=== PATIENT | male | born 1995 | race American Indian/Alaskan Native ===

== ENCOUNTER 2016-05-19 16:35 | Emergency (ER) | payer MEDICAID, OTHER ==
--- NOTE | 2016-05-19 16:45 | EDM.PDOC ---
ED HPI SEIZURE COMPLAINT - General Chief Complaint: Neurological Problem Stated Complaint: SEIZURE. 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 Patient was reported by father and EMS to be postictal for approximately 30 minutes. Denies injury. Patient reports he got sick 1 day ago with fevers, headache, upper abdominal pain, nausea and vomiting. Admits to mild sore throat. Patient has had one previous seizure 2 months ago and has a neurology consultation on June 18. 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 Symptom Onset Date: 05/19/16 Event Occurred (Where): home Event (Witnessed/Unwitnessed): unwitnessed Severity: severe Pre Event Symptom(s): Reports: no other symptoms Event Symptoms: Reports: no other symptoms Post Event Symptoms: Reports: postictal duration: (30 minutes) Associated Injuries: Reports: other (no injury) - Related Data Allergies/ADRs: Allergies Allergy/AdvReac Type Severity Reaction Status Date / Time diphenhydramine Allergy Hives Verified 05/19/16 16:28 [From Benadryl] Home Meds: Home Meds Acetaminophen [Tylenol Childrens' Chewable] 80 mg PO Q6H PRN 05/19/16 [History] Past Medical History - Past Health History Medical/Surgical History: Denies Medical/Surgical History HEENT History: Reports: None Cardiovascular History: Reports: Other (see below) Other Cardiovascular History: shunt Respiratory History: Reports: None Gastrointestinal History: Reports: None Genitourinary History: Reports: None Musculoskeletal History: Reports: None Neurological History: Reports: Seizure Psychiatric History: Reports: None Endocrine/Metabolic History: Reports: None Hematologic History: Reports: None Immunologic History: Reports: None Oncologic (Cancer) History: Reports: None Dermatologic History: Reports: None - Infectious Disease History Infectious Disease History: Reports: None - Past Surgical History Head Surgeries/Procedures: Reports: Shunt Other Neurological Surgeries/Procedures: shunt place with valve when a baby Social & Family History - Family History Family Medical History: Noncontributory - Tobacco Use Smoking Status *Q: Never Smoker Second Hand Smoke Exposure: No - Caffeine Use Caffeine Use: Reports: Soda, Tea - Recreational Drug Use Recreational Drug Use: Yes Recreational Drug Type: Reports: Marijuana/Hashish Recreational Drug Use Frequency: Socially - Living Situation & Occupation Living situation: Reports: with family ED ROS GENERAL - Review of Systems Review Of Systems: ROS reveals no pertinent complaints other than HPI. - Physical Exam Exam: See Below Exam Limited By: No limitations General Appearance: alert, WD/WN, no apparent distress Eye Exam: bilateral eye: normal inspection Ears: normal TMs Nose: other (mild clear nasal congestion) Throat/Mouth: Other (pharyngeal erythema with exudates.) Head Exam: atraumatic, normocephalic Neck: other (no nuchal rigidity). No: lymphadenopathy (L), lymphadenopathy (R) Respiratory/Chest: no respiratory distress, lungs clear, normal breath sounds, no accessory muscle use, chest non-tender Cardiovascular: normal peripheral pulses, regular rate, rhythm, no edema, no gallop, no JVD, no murmur, no rub GI/Abdominal: normal bowel sounds, soft, non tender, no organomegaly, no distention, no abnormal bruit, no mass Neuro Exam (Abbreviated): alert, oriented, CN II-XII intact, normal cognition, normal gait, normal reflexes, no motor/sensory deficits Back Exam: normal inspection, full range of motion, NT Extremities: normal inspection, normal range of motion, non-tender, no pedal edema, normal capillary refill Psychiatric: normal affect, normal mood Skin Exam: Other (facial ecchymosis) Course - Vital Signs Last Recorded V/S: Last Vital Signs Temp 36.8 C 05/19/16 16:42 Pulse 48 L 05/19/16 17:48 Resp 18 05/19/16 17:48 BP 127/67 05/19/16 17:48 Pulse Ox 99 05/19/16 17:48 - Orders/Labs/Meds Orders: Active Orders 24 hr Category Date Time Status Head wo Cont [CT] Stat Exams 05/19/16 16:58 Taken Lumbar Spine 2 or 3V [CR] Stat Exams 05/19/16 17:01 Taken Thoracic Spine 2V [CR] Stat Exams 05/19/16 17:03 Taken DRUG SCREEN URINE BIORAD [URCHEM] Stat Lab 05/19/16 16:57 Uncollected MAGNESIUM [CHEM] Stat Lab 05/19/16 17:59 Ordered UA W/MICROSCOPIC [URIN] Stat Lab 05/19/16 16:56 Uncollected Potassium Chloride [KCl 10 MEQ in Water 100 ML] 10 meq Med 05/19/16 18:00 Active Premix Bag 1 bag IV ONETIME Medication Orders Potassium Chloride 10 meq/ (Premix) 100 mls @ 100 mls/hr IV ONETIME ONE Stop: 05/19/16 18:59 Labs: Laboratory Tests 05/19/16 05/19/16 Range/Units 17:05 17:05 WBC 9.0 (5.0-10.0) 10^3/uL RBC 4.88 (4.6-6.2) 10^6/uL Hgb 14.6 (14.0-18.0) g/dL Hct 40.4 (40.0-54.0) % MCV 82.8 (80-100) fL MCH 29.9 (27.0-34.0) pg MCHC 36.1 H (33.0-35.0) g/dL Plt Count 181 (150-450) 10^3/uL Neut % (Auto) 82.6 H (42.2-75.2) % Lymph % (Auto) 8.2 L (20.5-50.1) % [place] % (Auto) 9.1 H (2-8) % Eos % (Auto) 0.0 L (1.0-3.0) % Baso % (Auto) 0.1 (0.0-1.0) % Sodium 128 L (135-145) mmol/L Potassium 2.8 L (3.6-5.0) mmol/L Chloride 96 L (101-111) mmol/L Carbon Dioxide 20.0 L (21.0-31.0) mmol/L Anion Gap 14.8 BUN 10 (7-18) mg/dL Creatinine 0.8 (0.6-1.3) mg/dL Est Cr Clr Drug Dosing 108.96 mL/min Estimated GFR (MDRD) > 60 BUN/Creatinine Ratio 12.50 Glucose 110 H (74-105) mg/dL Calcium 8.9 (8.4-10.2) mg/dl Total Bilirubin 0.5 (0.2-1.0) mg/dL AST 29 (10-42) IU/L ALT 16 (10-60) IU/L Alkaline Phosphatase 77 (42-121) IU/L Lactate Dehydrogenase 187 H (91-180) IU/L Creatine Kinase 265 H (26-174) IU/L Total Protein 7.6 (6.7-8.2) g/dl Albumin 4.6 (3.2-5.5) g/dl Globulin 3.0 Albumin/Globulin Ratio 1.53 Amylase 50 (28-100) U/L Lipase 20 L (22-51) U/L Ethyl Alcohol < 5 mg/dL Meds: Medications Generic Name Dose Route Start Last Admin Trade Name Freq PRN Reason Stop Dose Admin Potassium Chloride 10 meq/ 100 mls @ 100 mls/hr 05/19/16 18:00 Premix IV 05/19/16 18:59 ONETIME ONE Discontinued Medications Generic Name Dose Route Start Last Admin Trade Name Freq PRN Reason Stop Dose Admin Sodium Chloride 1,000 mls @ 999 mls/hr 05/19/16 16:57 05/19/16 17:05 Normal Saline IV 05/19/16 17:57 999 mls/hr .BOLUS ONE Administration Ceftriaxone Sodium 1 gm/ 50 mls @ 100 mls/hr 05/19/16 17:35 05/19/16 17:44 Sodium Chloride IV 05/19/16 18:04 100 mls/hr ONETIME ONE Administration Ketorolac Tromethamine 30 mg 05/19/16 17:35 05/19/16 17:43 Toradol IVPUSH 05/19/16 17:36 30 mg ONETIME ONE Administration Ondansetron HCl 4 mg 05/19/16 17:34 05/19/16 17:42 Zofran IV 05/19/16 17:35 4 mg ONETIME ONE Administration Potassium Chloride 40 meq 05/19/16 18:00 05/19/16 18:06 Klor-Con 10 PO 05/19/16 18:01 40 meq ONETIME ONE Administration - Re-Assessments/Exams Free Text/Narrative Re-Assessment/Exam: Rapid strep: Positive. Influenza A and B: Negative. Departure - Departure Time of Disposition: 17:52 Disposition: Home, Self-Care 01 Condition: fair Clinical Impression: Strep pharyngitis, Seizure, Hyponatremia, Hypokalemia, Dehydration Instructions: Strep Throat, [id number], Seizure, Adult, [id number] Forms: ED Department Discharge Additional Instructions: Amoxicillin 500mg. Zofran 4mg. Call your neurologist tomorrow to see if your June 18 appointment can be moved up to an earlier date, if not follow [facility] at [facility] for recheck and assistance with finding an earlier neurology appointment. Return to the ER if any further seizures or if any new symptoms develop. Follow up in clinic in 2 days for lab recheck. - My Orders Last 24 Hours: My Active Orders 05/19/16 16:56 UA W/MICROSCOPIC [URIN] Stat 05/19/16 16:57 DRUG SCREEN URINE BIORAD [URCHEM] Stat 05/19/16 16:58 Head wo Cont [CT] Stat 05/19/16 17:01 Lumbar Spine 2 or 3V [CR] Stat 05/19/16 17:03 Thoracic Spine 2V [CR] Stat 05/19/16 17:59 MAGNESIUM [CHEM] Stat 05/19/16 18:00 Potassium Chloride [KCl 10 MEQ in Water 100 ML] 10 meq Premix Bag 1 bag IV ONETIME - Assessment/Plan Last 24 Hours: My Active Orders 05/19/16 16:56 UA W/MICROSCOPIC [URIN] Stat 05/19/16 16:57 DRUG SCREEN URINE BIORAD [URCHEM] Stat 05/19/16 16:58 Head wo Cont [CT] Stat 05/19/16 17:01 Lumbar Spine 2 or 3V [CR] Stat 05/19/16 17:03 Thoracic Spine 2V [CR] Stat 05/19/16 17:59 MAGNESIUM [CHEM] Stat 05/19/16 18:00 Potassium Chloride [KCl 10 MEQ in Water 100 ML] 10 meq Premix Bag 1 bag IV ONETIME
[2016-05-19] MEDS ORDERED: Sodium Chloride 0.9% 1,000 ML IV ONE (16:57)
[2016-05-19 17:32] LABS: CHLORIDE,CL 96 mmol/L (101-111); SODIUM,NA 128 mmol/L (135-145)
[2016-05-19] MEDS ORDERED: Ondansetron 4 MG/2 ML SDV IV ONE (17:34)
[2016-05-19] MEDS ORDERED: cefTRIAXone 1 GM in Sodium Chloride 0.9% 50 ML IV ONE (17:35)
[2016-05-19] MEDS ORDERED: Ketorolac 30 MG/ML SDV IVPUSH ONE (17:35)
[2016-05-19 17:49] VITALS: BP 127/67
[2016-05-19] MEDS ORDERED: Potassium Chloride 10 MEQ Tab.ER PO ONE (18:00)
[2016-05-19] MEDS ORDERED: Potassium Chloride 10 MEQ in Premix Bag 1 BAG IV ONE (18:00)
[2016-05-19] MEDS ORDERED: HYDROmorphone 1 MG/ML Syringe IVPUSH ONE (18:14)
== END 2016-05-19 19:44 | disposition home or self-care (01) ==
LOC: DL.ED 16:35
DX: R56.9 Unspecified convulsions (principal); J02.0 Streptococcal pharyngitis; E87.1 Hypo-osmolality and hyponatremia; E87.6 Hypokalemia; E86.0 Dehydration; Z88.8 Allergy status to other drugs, medicaments and biological substances
CPT/HCPCS: 36415; 70450; 72070; 72100; 80053; 82150; 82550; 83615; 83690; 83735; 85025; 87430; 87804; 96361; 96365; 96367; 96375; 99284; A9270; G0480; J0696; J1170; J1885; J2405; J3480; J7030; J7050